=== PATIENT | male | born 1975 | race Caucasian/White ===

== ENCOUNTER 2018-03-21 04:05 | Emergency (ER) | payer MEDICAID ==
[~2018-03-21] VITALS: Ht 188 cm; Wt 100.7 kg
[~2018-03-21 04:05] MED LIST: ALBU90OI INH; Acular3 ML LEFTEYE; CEPH500 PO; CHEMO; CLIN150 PO; CODGUAEL PO; Cleocin HCl300 MG PO; ENOX100I SUBQ; ERYT.5TO LEFTEYE; ERYT.5TO OS; ERYT250; ESOM20 PO; HYDACE5; HYDACE5 PO; HYDACE5325 PO; HYDMOR2 PO; IBUP800; IBUP800 PO; Naprosyn500 MG PO; OMEP20ER PO; ONDA4 PO; OXYACE5T; OXYACE5T PO; OXYACE7.5T PO; PERM5TC TOP; RXCLIN PO; RXERYTOPTH OS; RXOXYACE PO; RXSULTRIDS PO; SULTRIDS PO; TOBR.3OPSO OP; TRAM50 PO; VICODIN ES; WARF5 PO
[2018-03-21] MEDS ORDERED: Zofran4 MG PO (05:02)
[2018-03-21] MEDS ORDERED: Percocet 5-3251 EACH PO (05:02)
[2018-03-21] MEDS ORDERED: Cipro250 MG PO (05:02)
[2018-03-21] MEDS ORDERED: Cleocin HCl150 MG PO (05:02)
== END 2018-03-21 05:20 | disposition home or self-care (01) ==
LOC: ER 04:05
DX: S31.35XA Open bite of scrotum and testes, initial encounter (principal); S71.151A Open bite, right thigh, initial encounter; Z23 Encounter for immunization; F17.210 Nicotine dependence, cigarettes, uncomplicated; Z88.0 Allergy status to penicillin; W54.0XXA Bitten by dog, initial encounter
CPT/HCPCS: 12004; 90471; 90714; 99283

== ENCOUNTER 2020-09-27 14:28 | Emergency (ER) | payer SELFPAY ==
[~2020-09-27] VITALS: Ht 188 cm; Wt 102.1 kg
[~2020-09-27 14:28] MED LIST changes: +COMPAZINE10 MG PO; +Cipro250 MG PO; +Cleocin HCl150 MG PO; +Percocet 5-3251 EACH PO; +Zofran4 MG PO
[2020-09-27] MEDS ORDERED: CLIN300 PO (14:40)
== END 2020-09-27 14:38 | disposition home or self-care (01) ==
LOC: ER 14:28
DX: K04.7 Periapical abscess without sinus (principal)
CPT/HCPCS: 99282